=== PATIENT | male | born 1945 | race Hispanic/Latino ===

== ENCOUNTER 2018-08-21 11:23 | Emergency (ER) | payer MEDICARE ==
[2018-08-21 11:58] LABS: Absolute Lymphocytes (CBC) 2.1 K/uL (0.7-4.9); Absolute Monocytes 0.5 K/uL (0.1-1.3); Absolute Neutrophil 3.2 K/uL (1.8-8.0); Basophils % 0.8 % (0-1.3); Eosinophils % 6.4 % (0-4.4); Hematocrit 40.4 % (39.6-49.0); Lymphocytes % 33.3 % (15.3-44.8); MPV 9.2 fL (7.6-11.3); Monocytes % 8.4 % (3.3-12.3)
[2018-08-21] MEDS ORDERED: NA CHLORIDE 0.9% 500 ML ONE (11:58)
[2018-08-21 12:15] LABS: Albumin 3.3 g/dL (3.4-5.0); Bilirubin Direct 0.1 mg/dL (0-0.2); Bilirubin Total 0.5 mg/dL (0.2-1.0); Potassium 3.7 mmol/L (3.5-5.1); Protein, Total 7.4 g/dL (6.4-8.2)
--- NOTE | 2018-08-21 13:59 | RAD REPORT ---
EXAM DESCRIPTION: CT - Abdomen Pelvis W Contrast - 08/21/2018 1:42 pm CLINICAL HISTORY: Abdominal pain. Left lower quadrant pain COMPARISON: None. TECHNIQUE: Computed axial tomography of the abdomen and pelvis was obtained. 100 cc Isovue-300 is ad ministered intravenously. Oral contrast was given. All CT scans are performed using dose optimization technique as appropriate and may include automated exposure control or mA/KV adjustment according to patient size. FINDINGS: Mild left lower lobe atelectasis Mild fatty liver Spleen, pancreas, and adrenals appear unremarkable. Small renal cysts The appendix is normal caliber. Diverticula stem from the colon without evidence of diverticulitis Small to moderate bilateral hernias . A small portion of bladder extends into the right inguinal vivian ia IMPRESSION: Small to moderate bilateral hernias . A small portion of bladder extends into the right inguinal hernia
--- NOTE | 2018-08-21 14:15 | EDPHYS ---
Physician Documentation [facility] Name: Vimal Colorado Age: 73 yrs Sex: Male : 1945 Arrival Date: 08/21/2018 Time: 11:25 Bed 5 Private MD: ED Physician Jeremy Ch HPI: 08/21 11:50 This 73 yrs old Male presents to ER via Ambulatory with complaints of rn Abdominal Pain. 11:50 The patient presents with abdominal pain in the left lower quadrant. Onset: The rn symptoms/episode began/occurred 2 day(s) ago. The symptoms do not radiate. Associated signs and symptoms: Pertinent positives: anorexia, Pertinent negatives: blood in stools, constipation, diarrhea, dysuria, fever, testicular pain, vomiting, vomiting blood. The symptoms are described as achy, intermittent. Modifying factors: The symptoms are alleviated by nothing, the symptoms are aggravated by touching the area. Severity of pain: At its worst the pain was moderate in the emergency department the pain is unchanged. The patient has not experienced similar symptoms in the past. The patient has not recently seen a physician. Historical: - Allergies: 11:36 No Known Allergies; hj - Home Meds: 11:36 levothyroxine 25 mcg tab 1 tab once daily [Active]; simvastatin 20 mg Oral tab 1 tab hj once daily [Active]; gabapentin oral oral [Active]; - PMHx: 11:36 COPD; Hypothyroidism; Hyperlipidemia; hj - PSHx: 11:36 pneumothorax repair; hj - Immunization history:: Adult Immunizations up to date. - Social history:: Smoking status: Patient/guardian denies using tobacco, Patient/guardian denies using alcohol. - Ebola Screening: : Patient negative for fever greater than or equal to 101.5 degrees Fahrenheit, and additional compatible Ebola Virus Disease symptoms Patient denies exposure to infectious person Patient denies travel to an Ebola-affected area in the 21 days before illness onset. - Family history:: not pertinent. - Hospitalizations: : No recent hospitalization is reported. ROS: 11:50 Constitutional: Negative for fever, chills, and weight loss, Eyes: Negative for injury, rn pain, redness, and discharge, Cardiovascular: Negative for chest pain, palpitations, and edema, Respiratory: Negative for shortness of breath, cough, wheezing, and pleuritic chest pain, Abdomen/GI: + abdominal pain and anorexia Back: Negative for injury and pain, MS/Extremity: Negative for injury and deformity, Skin: Negative for injury, rash, and discoloration, Neuro: Negative for headache, weakness, numbness, tingling, and seizure. Exam: 11:50 Constitutional: This is a well developed, well nourished patient who is awake, alert, rn and in no acute distress. Head/Face: Normocephalic, atraumatic. Eyes: Pupils equal round and reactive to light, extra-ocular motions intact. Lids and lashes normal. Conjunctiva and sclera are non-icteric and not injected. Cornea within normal limits. Periorbital areas with no swelling, redness, or edema. ENT: MMM Cardiovascular: Regular rate and rhythm. No pulse deficits. Respiratory: No increased work of breathing, no retractions or nasal flaring. Abdomen/GI: soft, + mild tendernes LLQ, no rebound Skin: Warm, dry MS/ Extremity: Pulses equal, no cyanosis. Neurovascular intact. Full, normal range of motion. Equal circumference. Neuro: Awake and alert, GCS 15, oriented to person, place, time, and situation. Cranial nerves II-XII grossly intact. Motor strength 5/5 in all extremities. Sensory grossly intact. Vital Signs: 11:36 BP 150 / 80; Pulse 75; Resp 18; Temp 98.6(TE); Pulse Ox 98% on R/A; Weight 79.38 kg; hj Height 6 ft. 0 in. (182.88 cm); Pain 5/10; 13:11 BP 140 / 89; Pulse 72; Resp 18; Pulse Ox 98% on R/A; hj 14:30 BP 145 / 82; Pulse 64; Resp 16; Pulse Ox 100% ; bp 11:36 Body Mass Index 23.73 (79.38 kg, 182.88 cm) MDM: 11:29 Patient medically screened. rn 14:12 Differential diagnosis: diverticulitis, non-specific abd pain, Ureterolithiasis. Data rn reviewed: vital signs, nurses notes, lab test result(s), radiologic studies, CT scan, and as a result, I will discharge patient. Counseling: I had a detailed discussion with the patient and/or guardian regarding: the historical points, exam findings, and any diagnostic results supporting the discharge/admit diagnosis, lab results, radiology results, the need for outpatient follow up, to return to the emergency department if symptoms worsen or persist or if there are any questions or concerns that arise at home. Response to treatment: the patient's symptoms have markedly improved after treatment. Special discussion: I discussed with the patient/guardian in detail that at this point there is no indication for admission to the hospital. It is understood, however, that if the symptoms persist or worsen the patient needs to return immediately for re-evaluation. ED course: Ct without acute findings, + bilateral hernias, no stones, no fever, normal bloodwork, feels much better after ct and using bathroom. . 08/21 11:35 Order name: Basic Metabolic Panel; Complete Time: 12:19 rn 08/21 11:35 Order name: CBC with Diff; Complete Time: 12:19 rn 08/21 11:35 Order name: Hepatic Function; Complete Time: 12:19 rn 08/21 11:35 Order name: Lipase; Complete Time: 12: rn 08/21 11:35 Order name: CT Abd/Pelvis - W/Contrast; Complete Time: 14:02 rn 08/21 11:35 Order name: IV Saline Lock; Complete Time: 11:45 rn 08/21 11:35 Order name: Labs collected and sent; Complete Time: 11:45 rn Administered Medications: 11:45 Drug: NS 0.9% 500 ml Route: IV; Rate: bolus; Site: left antecubital; 14:53 Follow up: Response: No adverse reaction hj Disposition: 08/21/18 14:14 Discharged to Home. Impression: Lower abdominal pain, unspecified, Bilateral inguinal hernia, without obstruction or gangrene. - Condition is Stable. - Discharge Instructions: Abdominal Pain, Adult, Inguinal Hernia, Adult. - Medication Reconciliation Form, Thank You Letter, Antibiotic Education, Prescription Opioid Use form. - Follow up: Private Physician; When: As needed; Reason: Recheck today's complaints, Re-evaluation by your physician. - Problem is new. - Symptoms have improved. Signatures: Dispatcher [employer] EDMS Jeremy Ch MD MD rn Joaquin, Henry, RN RN hj Peltier, Brian, RN RN bp Corrections: (The following items were deleted from the chart) 14:53 14:14 08/21/2018 14:14 Discharged to Home. Impression: Lower abdominal pain, bp unspecified; Bilateral inguinal hernia, without obstruction or gangrene. Condition is Stable. Forms are Medication Reconciliation Form, Thank You Letter, Antibiotic Education, Prescription Opioid Use. Follow up: Private Physician; When: As needed; Reason: Recheck today's complaints, Re-evaluation by your physician. Problem is new. Symptoms have improved. rn
--- NOTE | 2018-08-21 14:15 | ER ---
Nurse's Notes [facility] Name: Vimal Colorado Age: 73 yrs Sex: Male : 1945 Arrival Date: 08/21/2018 Time: 11:25 Bed 5 Private MD: Diagnosis: Lower abdominal pain, unspecified;Bilateral inguinal hernia, without obstruction or gangrene Presentation: 08/21 11:32 Presenting complaint: Patient states: this morning, i felt this dull pain on my stomach hj area, L side, denies diarrhea, denies N/V; denies fever;. Transition of care: patient was not received from another setting of care. Onset of symptoms was August 21, 2018. Risk Assessment: Do you want to hurt yourself or someone else? Patient reports no desire to harm self or others. Initial Sepsis Screen: Does the patient meet any 2 criteria? No. Patient's initial sepsis screen is negative. Does the patient have a suspected source of infection? No. Patient's initial sepsis screen is negative. Care prior to arrival: None. 11:32 Method Of Arrival: Ambulatory 11:32 Acuity: CASH 3 hj Triage Assessment: 11:37 General: Appears in no apparent distress. uncomfortable, slender, Behavior is calm, hj cooperative, appropriate for age. Pain: Complains of pain in abdomen. GI: Reports lower abdominal pain, upper abdominal pain. Historical: - Allergies: 11:36 No Known Allergies; hj - Home Meds: 11:36 levothyroxine 25 mcg tab 1 tab once daily [Active]; simvastatin 20 mg Oral tab 1 tab hj once daily [Active]; gabapentin oral oral [Active]; - PMHx: 11:36 COPD; Hypothyroidism; Hyperlipidemia; hj - PSHx: 11:36 pneumothorax repair; hj - Immunization history:: Adult Immunizations up to date. - Social history:: Smoking status: Patient/guardian denies using tobacco, Patient/guardian denies using alcohol. - Ebola Screening: : Patient negative for fever greater than or equal to 101.5 degrees Fahrenheit, and additional compatible Ebola Virus Disease symptoms Patient denies exposure to infectious person Patient denies travel to an Ebola-affected area in the 21 days before illness onset. - Family history:: not pertinent. - Hospitalizations: : No recent hospitalization is reported. Screenin:37 Abuse screen: Denies threats or abuse. Denies injuries from another. Nutritional hj screening: No deficits noted. Tuberculosis screening: No symptoms or risk factors identified. Fall Risk None identified. Assessment: 11:38 GI: Bowel sounds present X 4 quads. Abd is non tender. hj 11:38 General: Appears in no apparent distress. uncomfortable, Behavior is calm, cooperative, hj appropriate for age. Pain: Complains of pain in abdomen. Neuro: Level of Consciousness is awake, alert, obeys commands, Oriented to person, place, time, situation, Appropriate for age. Cardiovascular: Capillary refill < 3 seconds Patient's skin is warm and dry. Respiratory: Airway is patent Respiratory effort is even, unlabored, Respiratory pattern is regular, symmetrical. GI: Reports lower abdominal pain, upper abdominal pain. : No signs and/or symptoms were reported regarding the genitourinary system. EENT: No signs and/or symptoms were reported regarding the EENT system. Derm: No signs and/or symptoms reported regarding the dermatologic system. Musculoskeletal: No signs and/or symptoms reported regarding the musculoskeletal system. 12:05 Reassessment: PO CONTRAST COMPLETED, CT NOTIFIED. bp 13:11 Reassessment: Patient and/or family updated on plan of care and expected duration. Pain hj level reassessed. Patient is alert, oriented x 3, equal unlabored respirations, skin warm/dry/pink. awaiting CT;. 14:51 Reassessment: PT D/C HOME AMBULATORY, DX WITH HERNIA. bp Vital Signs: 11:36 BP 150 / 80; Pulse 75; Resp 18; Temp 98.6(TE); Pulse Ox 98% on R/A; Weight 79.38 kg; hj Height 6 ft. 0 in. (182.88 cm); Pain 5/10; 13:11 BP 140 / 89; Pulse 72; Resp 18; Pulse Ox 98% on R/A; hj 14:30 BP 145 / 82; Pulse 64; Resp 16; Pulse Ox 100% ; bp 11:36 Body Mass Index 23.73 (79.38 kg, 182.88 cm) hj ED Course: 11:25 Patient arrived in ED. as 11:27 Fermin Lott, MAYELIN is Primary Nurse. bp 11:29 Jeremy Ch MD is Attending Physician. rn 11:33 Triage completed. hj 11:38 Arm band placed on right wrist. hj 11:38 Patient has correct armband on for positive identification. Placed in gown. Bed in low hj position. Call light in reach. Side rails up X 1. 11:44 Initial lab(s) drawn, by me, sent to lab. Inserted saline lock: 20 gauge in left hj antecubital area, using aseptic technique. Blood collected. 11:50 Basic Metabolic Panel Sent. hj 11:50 CBC with Diff Sent. hj 11:50 Hepatic Function Sent. hj 11:50 Lipase Sent. hj 13:[address] mw3 13:41 CT completed. Patient tolerated procedure well. Patient moved back from CT. mw3 13:42 CT Abd/Pelvis - W/Contrast In Process Unspecified. EDMS 14:52 No provider procedures requiring assistance completed. IV discontinued, intact, bp bleeding controlled, No redness/swelling at site. Pressure dressing applied. Administered Medications: 11:45 Drug: NS 0.9% 500 ml Route: IV; Rate: bolus; Site: left antecubital; hj 14:53 Follow up: Response: No adverse reaction Outcome: 14:14 Discharge ordered by . rn 14:52 Discharged to home ambulatory. bp 14:52 Condition: stable 14:52 Discharge instructions given to patient, Instructed on discharge instructions, follow up and referral plans. Demonstrated understanding of instructions, follow-up care. 14:53 Patient left the ED. bp Signatures: Dispatcher [employer] EDMS Trinidad Alejo Roman, MD MD rn Joaquin, Henry, RN RN hj Peltier, Brian, RN RN bp Willis, Michelle mw3
== END 2018-08-21 14:53 | disposition home or self-care (01) ==
LOC: ER 11:23
DX: K40.20 Bilateral inguinal hernia, without obstruction or gangrene, not specified as recurrent (principal); E78.5 Hyperlipidemia, unspecified; J44.9 Chronic obstructive pulmonary disease, unspecified; E03.9 Hypothyroidism, unspecified
CPT/HCPCS: 85025; 80048; 36415; 80076; 83690; 74177; 99284; Q9967